=== PATIENT | male | born 1965 | race Caucasian/White ===

== ENCOUNTER 2020-12-07 19:47 | Emergency (ER) | payer BC ==
[2020-12-07 21:02] LABS: ACETAMINOPHEN < 2 ug/mL (<2)
--- NOTE | 2020-12-07 21:26 | EDM.PDOCBH ---
ED HPI GENERAL MEDICAL PROBLEM - General Chief Complaint: Behavioral/Psych Time Seen by Provider: 12/07/20 19:55 Source of Information: Reports: Patient, Family History Limitations: Reports: No Limitations - History of Present Illness INITIAL COMMENTS - FREE TEXT/NARRATIVE: Patient is a 55 YO WM who presented to the ED because of worsening depression and suicidal ideation. He was diagnosed with anxiety and depression when he was a teen ager but has not been on any medication until 2011 when he started taking Zoloft 100 mg daily. He said it seems to help him with his anxiety and depression until 2 months ago he started to be more depressed. 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 For the the past 3 days he has been having suicidal ideation and, hallucinations, has a plan of overdosing with insulin. He denies having homicidal thoughts,hallucinations, although he has problem sleeping for the past 3 days. - Related Data Allergies Allergy/AdvReac Type Severity Reaction Status Date / Time latex Allergy Rash Verified 12/07/20 20:08 Home Meds: Home Meds Insulin Aspart [NovoLOG] 80 unit INJECT ASDIRECTED 12/07/20 [History] Losartan [Cozaar] 100 mg PO DAILY 12/07/20 [History] Zaleplon 5 mg PO BEDTIME PRN 12/07/20 [History] Past Medical History HEENT History: Reports: Other (See Below) Other HEENT History: Retinopathy Genitourinary History: Reports: Other (See Below) Other Genitourinary History: Kidney disease Musculoskeletal History: Reports: Other (See Below) Other Musculoskeletal History: Neuropathy, microvascular degeneration Endocrine/Metabolic History: Reports: Diabetes, Type I, Obesity/BMI 30+, Other (See Below) Other Endocrine/Metabolic History: Liver disease - Past Surgical History HEENT Surgical History: Reports: Laser Surgery Musculoskeletal Surgical History: Reports: Carpal Tunnel Social & Family History - Tobacco Use Tobacco Use Status *Q: Never Tobacco User - Caffeine Use Caffeine Use: Reports: Soda - Recreational Drug Use Recreational Drug Use: No ED ROS GENERAL - Review of Systems Review Of Systems: See Below Constitutional: Reports: No Symptoms HEENT: Reports: No Symptoms Respiratory: Reports: No Symptoms Cardiovascular: Reports: No Symptoms Endocrine: Reports: No Symptoms GI/Abdominal: Reports: No Symptoms : Reports: No Symptoms Musculoskeletal: Reports: No Symptoms Skin: Reports: No Symptoms Neurological: Reports: No Symptoms Psychiatric: Reports: Anxiety, Depression ED EXAM, BEHAVIORAL HEALTH - Physical Exam Exam: See Below Exam Limited By: No Limitations General Appearance: Alert, No Apparent Distress Eye Exam: Bilateral Eye: PERRL Ears: Normal External Exam, Normal Canal Nose: Normal Inspection, Normal Mucosa, No Blood Throat/Mouth: Normal Inspection, Normal Lips, Normal Teeth, Normal Gums Head: Atraumatic, Normocephalic Neck: Normal Inspection, Supple, Non-Tender, Full Range of Motion Respiratory/Chest: No Respiratory Distress, Lungs Clear, Normal Breath Sounds, No Accessory Muscle Use, Chest Non-Tender Cardiovascular: Normal Peripheral Pulses, Regular Rate, Rhythm, No Edema, No Gallop, No JVD, No Murmur, No Rub GI/Abdominal: Normal Bowel Sounds, Soft, Non-Tender, No Organomegaly Back Exam: Normal Inspection, Full Range of Motion Extremities: Normal Inspection, Normal Range of Motion, Non-Tender Neurological: Alert, Normal Mood/Affect, CN II-XII Intact, Normal Cognition, Normal Gait, Normal Reflexes, No Motor/Sensory Deficits, Oriented x 3 COURSE, BEHAVIORAL HEALTH COMP - Course Vital Signs: Last Vital Signs Temp 35.8 C L 12/07/20 19:50 Pulse 57 L 12/07/20 22:35 Resp 18 12/07/20 22:35 BP 129/71 12/07/20 22:35 Pulse Ox 97 12/07/20 22:35 Lab result was reviewed and discussed with patient and his family Bernardo RAMIREZ consult Patient went to [facility] on 12/08/20 and was advised that he doesn't need inpatient psych treatment. He will have outpatient treatment 5 day a week for 1 month and see how it goes. He will also undergo outpatient alcohol treatment. I did call him this morning and overall he is feeling better and is no longer suicidal. He said he appreciate the follow up call. Orders, Labs, Meds: Active Orders 24 hr Category Date Time Status THYROXINE (T4) FREE, DIRECT, S Stat Lab 12/07/20 20:45 Received Laboratory Tests 12/07/20 12/07/20 12/07/20 Range/Units 20:40 20:45 20:45 WBC 5.9 (3.2-10.1) x10-3/uL RBC 5.09 (3.90-5.90) x10(6)uL Hgb 14.8 (12.9-17.7) g/dL Hct 44.8 (38.3-50.1) % MCV 88.0 (80.8-98.7) fL MCH 29.1 (27.0-33.3) pg MCHC 33.1 (28.7-35.3) g/dL RDW 14.6 (12.4-15.0) % Plt Count 232 (117-477) x10(3)uL MPV 7.7 (6.7-11.0) fL Neut % (Auto) 45.1 (40.3-71.8) % Lymph % (Auto) 47.7 H (15.8-45.3) % Emery % (Auto) 5.4 L (5.5-15.2) % Eos % (Auto) 1.5 (0.1-6.8) % Baso % (Auto) 0.3 (0.3-3.8) % Neut # (Auto) 2.7 (1.7-6.9) x10-3/uL Lymph # (Auto) 2.8 (0.5-4.5) x10-3/uL Emery # (Auto) 0.3 (0.0-1.2) x10-3/uL Eos # (Auto) 0.1 (0.0-0.6) x10-3/uL Baso # (Auto) 0.0 (0.0-0.3) x10-3/uL Sodium 143 (135-145) mmol/L Potassium 4.0 (3.5-5.3) mmol/L Chloride 106 (100-110) mmol/L Carbon Dioxide 25 (21-32) mmol/L BUN 14 (7-18) mg/dL Creatinine 1.2 (0.70-1.30) mg/dL Est Cr Clr Drug Dosing 75.82 mL/min Estimated GFR (MDRD) > 60 (>60) BUN/Creatinine Ratio 11.7 (9-20) Glucose 328 H (80-116) mg/dL Calcium 8.3 L (8.6-10.2) mg/dL Total Bilirubin 0.2 (0.1-1.3) mg/dL AST 30 H (5-25) IU/L ALT 41 H (12-36) U/L Alkaline Phosphatase 115 H (56-112) IU/L Total Protein 7.3 (6.0-8.0) g/dL Albumin 3.8 (3.5-5.2) g/dL Globulin 3.5 g/dL Albumin/Globulin Ratio 1.1 TSH, Ultra Sensitive (0.36-3.74) IU/mL Salicylates (<2.8) mg/dL Urine Opiates Screen Negative (NEGATIVE) Ur Oxycodone Screen Negative (NEGATIVE) Ur Propoxyphene Screen Negative (NEGATIVE) Acetaminophen (<2) ug/mL Ur Barbituates Screen Negative (NEGATIVE) Ur Tricyclics Screen Negative (NEGATIVE) Ur Phencyclidine Scrn Negative (NEGATIVE) Ur Amphetamine Screen Negative (NEGATIVE) Urine MDMA Screen Negative (NEGATIVE) U Benzodiazepines Scrn Negative (NEGATIVE) U Cocaine Metab Screen Negative (NEGATIVE) U Marijuana (THC) Screen Negative (NEGATIVE) Ethyl Alcohol (<0.03) % 12/07/20 12/07/20 Range/Units 20:45 20:45 WBC (3.2-10.1) x10-3/uL RBC (3.90-5.90) x10(6)uL Hgb (12.9-17.7) g/dL Hct (38.3-50.1) % MCV (80.8-98.7) fL MCH (27.0-33.3) pg MCHC (28.7-35.3) g/dL RDW (12.4-15.0) % Plt Count (117-477) x10(3)uL MPV (6.7-11.0) fL Neut % (Auto) (40.3-71.8) % Lymph % (Auto) (15.8-45.3) % Emery % (Auto) (5.5-15.2) % Eos % (Auto) (0.1-6.8) % Baso % (Auto) (0.3-3.8) % Neut # (Auto) (1.7-6.9) x10-3/uL Lymph # (Auto) (0.5-4.5) x10-3/uL Emery # (Auto) (0.0-1.2) x10-3/uL Eos # (Auto) (0.0-0.6) x10-3/uL Baso # (Auto) (0.0-0.3) x10-3/uL Sodium (135-145) mmol/L Potassium (3.5-5.3) mmol/L Chloride (100-110) mmol/L Carbon Dioxide (21-32) mmol/L BUN (7-18) mg/dL Creatinine (0.70-1.30) mg/dL Est Cr Clr Drug Dosing mL/min Estimated GFR (MDRD) (>60) BUN/Creatinine Ratio (9-20) Glucose (80-116) mg/dL Calcium (8.6-10.2) mg/dL Total Bilirubin (0.1-1.3) mg/dL AST (5-25) IU/L ALT (12-36) U/L Alkaline Phosphatase (56-112) IU/L Total Protein (6.0-8.0) g/dL Albumin (3.5-5.2) g/dL Globulin g/dL Albumin/Globulin Ratio TSH, Ultra Sensitive 1.46 (0.36-3.74) IU/mL Salicylates 1.2 L (<2.8) mg/dL Urine Opiates Screen (NEGATIVE) Ur Oxycodone Screen (NEGATIVE) Ur Propoxyphene Screen (NEGATIVE) Acetaminophen < 2 L (<2) ug/mL Ur Barbituates Screen (NEGATIVE) Ur Tricyclics Screen (NEGATIVE) Ur Phencyclidine Scrn (NEGATIVE) Ur Amphetamine Screen (NEGATIVE) Urine MDMA Screen (NEGATIVE) U Benzodiazepines Scrn (NEGATIVE) U Cocaine Metab Screen (NEGATIVE) U Marijuana (THC) Screen (NEGATIVE) Ethyl Alcohol 0.19 H* (<0.03) % Departure - Departure Time of Disposition: 22:00 Disposition: Home, Self-Care 01 Condition: Good Clinical Impression: Depression, Anxiety, Suicidal ideation - Discharge Information Instructions: Suicidal Feelings: How to Help Yourself Referrals: [facility] [Primary Care Provider] - Forms: ED Department Discharge Additional Instructions: Please read discharge instructions on suicidal ideation Return to the ED anytime if you feel like everything is out of control You can go to [facility] tomorrow when they have discharges and open bed s will be available but we can't guarantee you We will call you tonight if Bernardo Huang was able to find placement for you Sepsis Event Note (ED) - Evaluation Sepsis Screening Result: No Definite Risk - My Orders Last 24 Hours: My Active Orders 12/07/20 20:45 THYROXINE (T4) FREE, DIRECT, S Stat - Assessment/Plan Last 24 Hours: My Active Orders 12/07/20 20:45 THYROXINE (T4) FREE, DIRECT, S Stat
== END 2020-12-07 23:10 | disposition home or self-care (01) ==
LOC: FB.ED 19:47
DX: F32.9 Major depressive disorder, single episode, unspecified (principal); F41.9 Anxiety disorder, unspecified; Z91.040 Latex allergy status; Z79.4 Long term (current) use of insulin; Z79.899 Other long term (current) drug therapy
CPT/HCPCS: 36415; 80053; 80143; 80179; 80305-QW; 80307; 84439; 84443; 85025; 99284

== ENCOUNTER 2021-02-18 14:17 | Emergency (ER) | payer BC ==
[2021-02-18] MEDS ORDERED: Ketorolac 30 MG/ML SDV IM STA (14:44)
[2021-02-18] MEDS ORDERED: Cyclobenzaprine 10 MG Tab PO STA (14:44)
[2021-02-18] MEDS ORDERED: traMADol 50 MG Tab PO STA (14:45)
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
== END 2021-02-18 15:55 | disposition home or self-care (01) ==
LOC: FB.ED 14:17
DX: S20.211A Contusion of right front wall of thorax, initial encounter (principal); E10.9 Type 1 diabetes mellitus without complications; E66.9 Obesity, unspecified; Z68.32 Body mass index [BMI] 32.0-32.9, adult; Z88.4 Allergy status to anesthetic agent; Z91.040 Latex allergy status; Z91.018 Allergy to other foods; Z88.8 Allergy status to other drugs, medicaments and biological substances; W18.39XA Other fall on same level, initial encounter
CPT/HCPCS: 71101; 96374; 99283; A9270; J1885